=== PATIENT | female | born 1970 | race Caucasian/White ===

== ENCOUNTER 2022-09-10 06:54 | Day surgery (SDC) | payer OTHER, SELFPAY ==
[2022-07-11 09:17] VITALS: BMI 26.6
[2022-08-28 11:58] VITALS: BMI 26.5
--- NOTE | 2022-09-10 07:11 | WPDANESEPPF ---
Anes - Initial Pre Proc Eval Procedure: Operation Date: 09/10/22 11:30 Proposed Procedures p Screening Colonoscopy - Trung Gutiérrez MD Date/Time: 09/10/22 07:11 Surgeon: Trung Gutiérrez MD Pre Op Diagnosis: Neoplasm Screening Patient Data Age: 52 Gender: F Height: 1.68 m Weight: 74.5 kg Allergies Allergy/AdvReac Type Severity Reaction Status Date / Time No Known Allergies Allergy Unknown Verified 08/28/22 11:58 Home Medications Medication Instructions Recorded Confirmed Type ibuprofen 200 mg tablet 600 mg PO Q6H PRN Pain, Mild 03/29/22 08/28/22 History omeprazole magnesium 20 mg 20 mg PO DAILY 04/04/22 08/28/22 History tablet,delayed release (Prilosec OTC) atorvastatin 20 mg tablet 20 mg PO QHS #90 tabs 04/09/22 08/28/22 Rx cholecalciferol (vitamin D3) 25 25 mcg PO DAILY 05/03/22 08/28/22 History mcg (1,000 unit) capsule ergocalciferol (vitamin D2) 1,250 1,250 mcg PO WEEKLY #13 caps 05/03/22 08/28/22 Rx mcg (50,000 unit) capsule (Vitamin D2) sodium,potassium,mag sulfates 17.5 See Rx Instructions PO .COMPLEX 07/11/22 Rx gram-3.13 gram-1.6 gram oral soln #354 mL (Suprep Bowel Prep Kit) peg 3350-electrolytes 236 240 ml PO Q10M #4,000 mL 08/03/22 Rx gram-22.74 gram-6.74 gram-5.86 gram solution (Golytely) Patient hx anesthesia problems: none Family hx anesthesia problems: none Results Review: All pre-operative results and documents have been reviewed as part of the pre-operative evaluation. [facility] Past Medical History Medical History (Updated 09/10/22 @ 07:12 by Demetrius Rubio DO) section wound seroma, Hyperlipidemia Prediabetes Surgical History Surgical History H/O tubal ligation History of cholecystectomy Hx of appendectomy Family History Family History Grandparent Cerebrovascular accident Father Thyroid disease Hyperlipemia Social History Social History Smoking status: Never smoker Alcohol intake: current Alcohol use details: holidays Substance use: never Substance use type: does not use Living arrangements: with family Spiritual care concerns: No Anes - Eval Final PreProcedure Day of Procedure 09/10/22 07:11 Patient weight: overweight Heart: regular rate and rhythm Lungs: clear to auscultation Airway: Mallampati scale class II Neurological: alert and oriented Last oral intake: >/= 8 hours ASA classification: II Emergent: no Anesthetic plan: proceed Anesthesia type and monitoring: general GIVS and standard monitoring Results Review: All pre-operative results and documents have been reviewed as part of the pre-operative evaluation. Informed Consent: The patient's anesthetic plan and its attendant risks and benefits were discussed with the patient/family/POA. Questions were solicited and answers provided to the satisfaction of the patient/family/POA.
[2022-09-10 10:18] VITALS: BP 129/87; PULSE 77; RESP 20; TEMP 37.2; O2SAT 100
--- NOTE | 2022-09-10 10:44 | PM.HPGS ---
History of Present Illness History of Present Illness Consent: Risks, benefits, and alternatives have been discussed and questions answered. Patient agrees to proceed with procedure. Chief complaint: Neoplasm Screening Narrative: Halie Zavala is a 52 year old female Presents for screening colonoscopy. Patient's current weight appetite and bowel movements are normal. Patient denies abdominal pain. She has had no bleeding. her bowel habits are normal. Family history is significant that her mother had colon polyps. Two aunts have had colon cancer. Patient presents today for neoplasia screening. Review of Systems Review of Systems: Review of systems noncontributory. [facility] Past Medical History Medical History (Updated 09/10/22 @ 10:46 by Trung Gutiérrez MD) section wound seroma, Hyperlipidemia Prediabetes Surgical History Surgical History H/O tubal ligation History of cholecystectomy Hx of appendectomy Family History Family History Grandparent Cerebrovascular accident Father Thyroid disease Hyperlipemia Social History Social History Smoking status: Never smoker Alcohol intake: current Alcohol use details: holidays Substance use: never Substance use type: does not use Living arrangements: with family Spiritual care concerns: No Meds Home Medications and Allergies Home Medications Medication Instructions Recorded Confirmed Type ibuprofen 200 mg tablet 600 mg PO Q6H PRN Pain, Mild 03/29/22 09/10/22 History omeprazole magnesium 20 mg 20 mg PO DAILY 04/04/22 09/10/22 History tablet,delayed release (Prilosec OTC) atorvastatin 20 mg tablet 20 mg PO QHS #90 tabs 04/09/22 09/10/22 Rx cholecalciferol (vitamin D3) 25 25 mcg PO DAILY 05/03/22 09/10/22 History mcg (1,000 unit) capsule ergocalciferol (vitamin D2) 1,250 1,250 mcg PO WEEKLY #13 caps 05/03/22 09/10/22 Rx mcg (50,000 unit) capsule (Vitamin D2) sodium,potassium,mag sulfates 17.5 See Rx Instructions PO .COMPLEX 11/30/22 01/30/23 Rx gram-3.13 gram-1.6 gram oral soln #354 mL (Suprep Bowel Prep Kit) peg 3350-electrolytes 236 240 ml PO Q10M #4,000 mL 08/03/22 09/10/22 Rx gram-22.74 gram-6.74 gram-5.86 gram solution (Golytely) Allergies Allergy/AdvReac Type Severity Reaction Status Date / Time No Known Allergies Allergy Unknown Verified 09/10/22 10:43 Exam Narrative: Physical exam reveals patient to be alert. Vital signs stable. HEENT exam is unremarkable. Patient is anicteric. Lungs are clear to auscultation and percussion. Heart is without murmur or extra sounds. Abdomen bowel sounds are present soft nontender with no organomegaly. Digital external rectal exam is normal. Assessment and Plan Assessment and plan (1) Family history of colonic polyps: Code(s): Z83.71 - Family history of colonic polyps Status: Acute Assessment and Plan: Family history is significant her mother had colon polyps. Two aunts have had colon cancer. Plan for surveillance colonoscopy now and consider this at 5 year intervals.
[2022-09-10] MEDS: LACTATED RINGERS 1,000 ML 150 ML IV CONT (10:46)
[2022-09-10 11:30] VITALS: BP 105/63; PULSE 68; RESP 18; O2SAT 98
[2022-09-10 11:40] VITALS: BP 96/63; PULSE 66; RESP 20; O2SAT 100
[2022-09-10 11:50] VITALS: BP 107/66; PULSE 62; RESP 20; O2SAT 100
--- NOTE | 2022-09-10 11:57 | WPDANESPN ---
Anes - Prog Note Post-Op Date/Time: 09/10/22 11:57 Cardiovascular status: normal Respiratory status: normal Airway patency: baseline Mental status: baseline Post-Op hydration status: normal Vital Signs: Last Vital Signs Temp 37.2 C 09/10/22 10:18 Pulse 77 09/10/22 10:18 Resp 20 09/10/22 10:18 BP 129/87 09/10/22 10:18 Pulse Ox 100 09/10/22 10:18 O2 Del Method Room Air 09/10/22 10:18 Pain Score (VAS): 0 I/O: Intake & Output 09/09/22 09/10/22 09/10/22 23:59 07:59 15:59 Intake Total 100 Balance 100 Post-procedural complaints: none Patient Feedback: Patient satisfied with anesthetic care. Other Findings: Patient vital signs back to baseline. Patient denies nausea and vomiting. Patient's pain under control. Patient OK for discharge.
== END 2022-09-10 12:08 | disposition home or self-care (01) ==
PROVIDERS: PCP Family Medicine; Visit Provider Internal Medicine Gastroenterology
PROC: 0DJD8ZZ Inspection of Lower Intestinal Tract, Via Natural or Artificial Opening Endoscopic (ICD-10-PCS; CPT 45378; principal; 2022-09-10 11:30)
DX: Z83.71 Family history of colonic polyps (principal)
CPT/HCPCS: 45378

== ENCOUNTER 2025-05-06 13:29 | Outpatient (CLI) | payer OTHER, SELFPAY ==
--- NOTE | ~2025-05-06 | MM_ITS ---
EXAMINATION: MM screening elder BI w patricia HISTORY: Screening TECHNIQUE: Craniocaudal and mediolateral oblique 3-D tomosynthesis images were obtained and synthetic 2-D images were generated. CAD analysis was submitted and interpreted. COMPARISON: No prior mammogram is available for comparison at this institution. BREAST PARENCHYMAL COMPOSITION: The breasts are heterogeneously dense, which may obscure small masses. FINDINGS: There is no evidence of suspicious mass, calcification, or architectural distortion to suggest malignancy. IMPRESSION: 1. No mammographic evidence of malignancy. Recommend routine screening mammography in one year. BI-RADS Category 2: Benign finding(s) Reviewed, dictated and finalized at location Q. IMPRESSION: 1. No mammographic evidence of malignancy. Recommend routine screening mammogra phy in one year. BI-RADS Category 2: Benign finding(s)
--- NOTE | ~2025-05-06 | DEXA_ITS ---
Bone Density Report Name: AZAM CLOUD Age: 54 Sex: Female Ethnicity: White Date of : 1970 Indication: postmenopausal; screening for osteoporosis; parental hip fracture; Referring Provider: JAZMIN CHO Study: Bone densitometry was performed. Exam Date: May 06, 2025 Accession number: [id number] Bone Density: Region BMD T-score Z-score Classification AP Spine(L1-L4) 1.100 0.5 1.6 Normal Femoral Neck (Left) 0.945 0.9 1.9 Normal Total Hip (Left) 0.958 0.1 0.8 Normal Femoral Neck (Right) 0.894 0.4 1.5 Normal Total Hip (Right) 0.930 -0.1 0.6 Normal Total Hip Mean 0.944 0.0 0.7 Normal World Health Organization criteria for BMD impression classify patients as: Normal (T-score at or above -1.0), Osteopenia (T-score between -1.0 and -2.5), or Osteoporosis (T-score at or below -2.5). 10-year Fracture Risk: FRAX not reported because: All T-scores for Spine Total, Hip Total, Femoral Neck at or above -1.0 Clinical Information Provided by Patient: Parent has had a hip fracture Has used the following medications: Vitamin D Patient maximum height was 66.5 Menopause Age: 54 No regular weight bearing exercise Drinks caffeinated beverages Onset of menses at age 11 Number of children 4 Impression: The patient has normal bone mass. The patient has risk factors, including: parental hip fracture. Discussion: BONE DENSITY IS ABOVE THE MINIMUM DESIRABLE LEVEL AT ALL SKELETAL SITES TESTED. This patient?s bone mineral density is above the minimum desirable level (T-score -1.0 or better) at all sites measured. The patient should follow a healthful lifestyle (good nutrition with adequate calcium and vitamin D, and appropriate weight-bearing exercise). Follow-Up: Consider repeating this study in 5 years or sooner if there is some new clinical indication. Reported by: SHARAN on 05/06/2025 1:58:00 PM. Reviewed, dictated and finalized at location A.
== END 2025-05-06 13:30 | disposition home or self-care (01) ==
LOC: MICIMG 13:30
PROVIDERS: PCP Family Medicine; Visit Provider Family Medicine
DX: Z12.31 Encounter for screening mammogram for malignant neoplasm of breast (principal); Z13.820 Encounter for screening for osteoporosis; Z78.0 Asymptomatic menopausal state
CPT/HCPCS: 77063; 77067; 77080